=== PATIENT | male | born 1965 | race African-American/Black ===

== ENCOUNTER 2018-10-01 19:10 | Emergency (ER) | payer SELFPAY ==
[~2018-10-01] VITALS: Ht 165.1 cm; Wt 71.0 kg
[2018-10-01] MEDS ORDERED: LIDOCAINE HCL/PF 1% 10 MG/ML 5ML VIAL IJ ONE (20:15)
[2018-10-01] MEDS ORDERED: TETANUS, DIPHTHERIA, PERTUSSIS VAC/PF 0.5ML (>7YR OLD) IM ONE (20:15)
[2018-10-01] MEDS ORDERED: BACITRACIN ZINC OINT UDPKT TOP ONE (20:15)
[2018-10-01 21:50] VITALS: BP 149/99
== END 2018-10-01 21:51 | disposition home or self-care (01) ==
LOC: ER 19:10
DX: S61.214A Laceration without foreign body of right ring finger without damage to nail, initial encounter (principal); S61.216A Laceration without foreign body of right little finger without damage to nail, initial encounter; F12.10 Cannabis abuse, uncomplicated; W26.0XXA Contact with knife, initial encounter; Y93.G9 Activity, other involving cooking and grilling; Y92.511 Restaurant or cafe as the place of occurrence of the external cause; Y99.0 Civilian activity done for income or pay
CPT/HCPCS: 12002; 90471; 90715; 99284; J3490; Z7610

== ENCOUNTER 2018-10-14 08:15 | Emergency (ER) | payer SELFPAY ==
[~2018-10-14] VITALS: Ht 165.1 cm; Wt 70.0 kg
[2018-10-14 09:17] VITALS: BP 152/102
== END 2018-10-14 09:17 | disposition home or self-care (01) ==
LOC: ER 08:42
DX: Z48.02 Encounter for removal of sutures (principal)
CPT/HCPCS: 99281